=== PATIENT | male | born 1975 | race Caucasian/White ===

== ENCOUNTER 2019-05-14 09:49 | Emergency (ER) | payer BC ==
[~2019-05-14] VITALS: Ht 177.8 cm; Wt 68.4 kg
[2019-05-14 10:33] LABS: BASOPHILS % (AUTO) 0.8 % (0-1); EOSINOPHILS % (AUTO) 0.6 % (0-6); HEMATOCRIT 45.7 % (42.0-52.0); HEMOGLOBIN 15.5 g/dl (14.0-17.9); LYMPHOCYTES # (AUTO) 1.3 X10'3 (1.1-4.8); LYMPHOCYTES % (AUTO) 31.7 % (21-51); MEAN CORPUSCULAR HEMOGLOBIN 31.2 PG (27.0-31.0); MEAN CORPUSCULAR HGB CONC 33.8 g/dL (33.0-36.5); MEAN CORPUSCULAR VOLUME 92.2 FL (78-98); MEAN PLATELET VOLUME 8.2 FL (7.4-10.4); MONOCYTES # (AUTO) 0.3 X10'3 (0-0.9); MONOCYTES % (AUTO) 7.3 % (2-12); NEUTROPHILS # (AUTO) 2.5 X10'3 (1.8-7.7); NEUTROPHILS % (AUTO) 59.6 % (42-75); PLATELET COUNT 231 X10'3 (140-440); RED BLOOD COUNT 4.95 X10'6 (4.70-6.10); RED CELL DISTRIBUTION WIDTH 13.7 % (11.5-14.5); WHITE BLOOD COUNT 4.1 X10'3 (4.5-11.0)
[2019-05-14 10:48] LABS: ALANINE AMINOTRANSFERASE 32 U/L (12-78); ALBUMIN 4.5 G/DL (3.4-5.0); ALBUMIN/GLOBULIN RATIO 1.6 (1.1-1.5); ALKALINE PHOSPHATASE 110 IU/L (46-116); ASPARTATE AMINO TRANSFERASE 20 U/L (10-37); BILIRUBIN,TOTAL 1.5 MG/DL (0.1-1.0); BLOOD UREA NITROGEN 22 MG/DL (7-18); BUN/CREATININE RATIO 21.4 (5.4-32.0); CHLORIDE 105 MMOL/L (99-107); CREATININE 1.03 MG/DL (0.60-1.10); GLUCOSE 99 MG/DL (70-104); POTASSIUM 3.9 MMOL/L (3.5-5.1); TOTAL CARBON DIOXIDE 28.3 MMOL/L (24-32); TOTAL PROTEIN 7.4 G/DL (6.4-8.2); eGFR 78 ML/MIN
[2019-05-14 10:50] LABS: ANION GAP 7 (8-16); SODIUM 140 MMOL/L (135-145)
[2019-05-14] MEDS ORDERED: ketorolac tromethamine 15mg/ml inj. IV ONE (11:25)
[2019-05-14] MEDS ORDERED: IBUP-1984 PO (11:28)
[2019-05-14 12:47] VITALS: BP 109/70
== END 2019-05-14 12:49 | disposition home or self-care (01) ==
LOC: ER 09:49
DX: R07.89 Other chest pain (principal); Z79.899 Other long term (current) drug therapy
CPT/HCPCS: 36415; 71045; 80053; 84484; 85025; 93005; 96374; 99284; J1885

== ENCOUNTER 2020-06-13 12:42 | Emergency (ER) | payer BC ==
[~2020-06-13] VITALS: Ht 177.8 cm; Wt 115.9 kg
[2020-06-13 13:29] LABS: BASOPHILS % (AUTO) 0.6 % (0-1); EOSINOPHILS # (AUTO) 0.1 X10'3 (0-0.9); EOSINOPHILS % (AUTO) 1.8 % (0-6); HEMOGLOBIN 16.2 g/dl (14.0-17.9); LYMPHOCYTES # (AUTO) 1.3 X10'3 (1.1-4.8); LYMPHOCYTES % (AUTO) 28.1 % (21-51); MEAN CORPUSCULAR HEMOGLOBIN 30.6 PG (27.0-31.0); MEAN CORPUSCULAR HGB CONC 33.7 g/dL (33.0-36.5); MEAN PLATELET VOLUME 8.5 FL (7.4-10.4); MONOCYTES # (AUTO) 0.4 X10'3 (0-0.9); MONOCYTES % (AUTO) 8.7 % (2-12); NEUTROPHILS # (AUTO) 2.8 X10'3 (1.8-7.7); NEUTROPHILS % (AUTO) 60.8 % (42-75); PLATELET COUNT 220 X10'3 (140-440); RED BLOOD COUNT 5.28 X10'6 (4.70-6.10); RED CELL DISTRIBUTION WIDTH 13.8 % (11.5-14.5); WHITE BLOOD COUNT 4.5 X10'3 (4.5-11.0)
[2020-06-13 13:49] LABS: ALANINE AMINOTRANSFERASE 34 U/L (12-78); ALBUMIN 4.5 G/DL (3.4-5.0); ALBUMIN/GLOBULIN RATIO 1.4 (1.1-1.5); ALKALINE PHOSPHATASE 104 IU/L (46-116); ANION GAP 6 (8-16); ASPARTATE AMINO TRANSFERASE 19 U/L (10-37); BILIRUBIN,TOTAL 1.5 MG/DL (0.1-1.0); BLOOD UREA NITROGEN 17 MG/DL (7-18); BUN/CREATININE RATIO 17.3 (5.4-32.0); CALCIUM 9.1 MG/DL (8.5-10.1); CHLORIDE 103 MMOL/L (99-107); CREATININE 0.98 MG/DL (0.60-1.10); GLUCOSE 100 MG/DL (70-104); SODIUM 137 MMOL/L (135-145); TOTAL CARBON DIOXIDE 28.3 MMOL/L (24-32); TOTAL PROTEIN 7.8 G/DL (6.4-8.2); eGFR 82 ML/MIN
[2020-06-13 14:03] LABS: LIPASE 72 U/L (73-393)
[2020-06-13 14:13] VITALS: BP 116/86
== END 2020-06-13 14:50 | disposition home or self-care (01) ==
LOC: ER 12:42
DX: R10.13 Epigastric pain (principal)
CPT/HCPCS: 36415; 71045; 80053; 83690; 83880; 84484; 85025; 93005; 99285

== ENCOUNTER 2021-09-01 13:26 | Emergency (ER) | payer BC, OTHER ==
[~2021-09-01] VITALS: Ht 177.8 cm; Wt 70.0 kg
[2021-09-01 13:43] VITALS: BP 131/90
[2021-09-01] MEDS ORDERED: TETanus/Pertussis (Acell)/Diphther VAC/PF (Tdap-Adult) 0.5ml syringe IMVAC ONE (14:50)
[2021-09-01] MEDS ORDERED: HYDR-3965 PO (15:13)
[2021-09-01] MEDS ORDERED: CEPH250T PO ×2 (15:13→17:27)
== END 2021-09-01 16:46 | disposition home or self-care (01) ==
LOC: ER 13:26
DX: S62.635A Displaced fracture of distal phalanx of left ring finger, initial encounter for closed fracture (principal); S61.215A Laceration without foreign body of left ring finger without damage to nail, initial encounter; M79.645 Pain in left finger(s); Z79.2 Long term (current) use of antibiotics; Z20.3 Contact with and (suspected) exposure to rabies; X58.XXXA Exposure to other specified factors, initial encounter; Y93.89 Activity, other specified; Y92.89 Other specified places as the place of occurrence of the external cause; Y99.8 Other external cause status
CPT/HCPCS: 12001; 73140; 90471; 90715; 99283

== ENCOUNTER 2021-09-10 11:42 | Emergency (ER) | payer OTHER ==
[~2021-09-10] VITALS: Ht 177.8 cm; Wt 70.5 kg
[~2021-09-10 11:42] MED LIST: HYDR-3965 PO
[2021-09-10 11:49] VITALS: BP 123/79
== END 2021-09-10 12:57 | disposition home or self-care (01) ==
LOC: ER 11:43
DX: M79.645 Pain in left finger(s) (principal); S61.215D Laceration without foreign body of left ring finger without damage to nail, subsequent encounter; Z48.02 Encounter for removal of sutures; Z79.899 Other long term (current) drug therapy; X58.XXXD Exposure to other specified factors, subsequent encounter
CPT/HCPCS: 99281

== ENCOUNTER 2023-07-07 06:53 | Observation (INO) | payer BC, OTHER ==
[~2023-07-07] VITALS: Ht 175.3 cm; Wt 70.2 kg
[2023-07-07 07:28] LABS: BASOPHILS % (AUTO) 0.7 % (0-1); EOSINOPHILS # (AUTO) 0.1 X10'3 (0-0.9); EOSINOPHILS % (AUTO) 1.2 % (0-6); HEMATOCRIT 46.9 % (42.0-52.0); HEMOGLOBIN 15.7 g/dl (14.0-17.9); LYMPHOCYTES # (AUTO) 1.6 X10'3 (1.1-4.8); LYMPHOCYTES % (AUTO) 32.5 % (21-51); MEAN CORPUSCULAR HEMOGLOBIN 30.5 PG (27.0-31.0); MEAN CORPUSCULAR HGB CONC 33.5 g/dL (33.0-36.5); MEAN PLATELET VOLUME 8.4 FL (7.4-10.4); MONOCYTES # (AUTO) 0.3 X10'3 (0-0.9); NEUTROPHILS # (AUTO) 2.9 X10'3 (1.8-7.7); NEUTROPHILS % (AUTO) 58.6 % (42-75); PLATELET COUNT 203 X10'3 (140-440); RED BLOOD COUNT 5.16 X10'6 (4.70-6.10); RED CELL DISTRIBUTION WIDTH 13.9 % (11.5-14.5); WHITE BLOOD COUNT 4.9 X10'3 (4.5-11.0)
[2023-07-07] MEDS: aspirin 325mg tablet PO ONE (07:31)
[2023-07-07 07:43] LABS: ALANINE AMINOTRANSFERASE 38 U/L (12-78); ALBUMIN 4.4 G/DL (3.4-5.0); ALBUMIN/GLOBULIN RATIO 1.3 (1.1-1.5); ALKALINE PHOSPHATASE 164 IU/L (46-116); ANION GAP 9 (8-16); ASPARTATE AMINO TRANSFERASE 20 U/L (10-37); BLOOD UREA NITROGEN 19 MG/DL (7-18); BUN/CREATININE RATIO 22.4 (10.0-20.0); CALCIUM 8.9 MG/DL (8.5-10.1); CHLORIDE 105 MMOL/L (99-107); CREATININE 0.85 MG/DL (0.60-1.10); GLUCOSE 107 MG/DL (70-104); POTASSIUM 3.7 MMOL/L (3.5-5.1); SODIUM 140 MMOL/L (135-145); TOTAL CARBON DIOXIDE 26.3 MMOL/L (24-32); TOTAL PROTEIN 7.7 G/DL (6.4-8.2); eCRCL 103 ML/MIN; eGFR > 90 ML/MIN
[2023-07-07 07:55] LABS: PRO BRAIN NATRIURETIC PEPTIDE 46 PG/ML (0-125)
[2023-07-07] MEDS ORDERED: acetaminophen 325mg tablet PO PRN ×2 (13:05)
[2023-07-07] MEDS ORDERED: magnesium 2GM in 50ml NS 50 ML IV PRN (13:05)
[2023-07-07] MEDS ORDERED: potassium Cl 20 mEq SR tablet PO PRN ×2 (13:05)
[2023-07-07] MEDS ORDERED: magnesium Cl slow-release 64mg tablet PO PRN (13:05)
[2023-07-07] MEDS ORDERED: magnesium hydroxide 30ml (MOM) UD suspension PO PRN (13:05)
[2023-07-07] MEDS ORDERED: ondansetron 4mg rapidly disintigrating tab PO PRN (13:05)
[2023-07-07] MEDS ORDERED: ondansetron/PF 4mg/2ml inj IV PRN (13:05)
[2023-07-07] MEDS ORDERED: magnesium 4gm in 100ml NS 100 ML IV PRN (13:05)
[2023-07-07] MEDS ORDERED: potassium Cl 40MEQ/1/2NS 520ml 520 ML IV PRN (13:05)
[2023-07-07] MEDS ORDERED: mag hydrox/Alum hydrox/simeth 30ml oral suspension PO PRN (13:05)
[2023-07-07] MEDS ORDERED: morphine 2 MG/ML inj. syringe IV PRN ×2 (13:05)
[2023-07-07] MEDS ORDERED: nitroGLYCERIN 0.4mg SUBLingual tab SL PRN (13:05)
[2023-07-07 14:26] VITALS: RESP 15
[2023-07-07 15:00] VITALS: BP 115/68; PULSE 65; RESP 15; TEMP 98.5; O2SAT 100
[2023-07-07] MEDS: metoprolol tartrate 12.5mg (1/2 tablet) PO SCH (15:00)
[2023-07-07] MEDS ORDERED: NO HOME MEDS (17:36)
[2023-07-07] MEDS ORDERED: Potassium Cl inj 20 MEQ in normal saline 1000ml 990 ML IV SCH (17:45)
[2023-07-07] MEDS ORDERED: LORazepam 0.5 MG tablet PO PRN (17:45)
[2023-07-07 18:00] VITALS: BP 112/79; PULSE 65; RESP 12; TEMP 98.4; O2SAT 96
[2023-07-07 18:13] LABS: CHOL/HDL RATIO 2.4 (0.00-4.99); CHOLESTEROL 156 MG/DL (0-200); HDL CHOLESTEROL 65 MG/DL (35-60); LDL CHOLESTEROL 75 MG/DL (50-100)
[2023-07-07 18:14] LABS: FREE T4 (FREE THYROXINE) 0.91 NG/DL (0.73-1.40); THYROID STIMULATING HORMONE 1.84 ulU/ml (0.34-4.50); TRIGLYCERIDES 15 MG/DL (20-135)
[2023-07-07 18:22] LABS: H PYLORI ANTIBODY NEGATIVE (Neg)
[2023-07-07] MEDS: potassium Cl 20mEq in NS 1,000 ML IV SCH (19:24)
[2023-07-07 20:00] VITALS: RESP 18; O2SAT 96
[2023-07-07] MEDS: K and/or MAG REPLACEMENT MC SCH (20:00)
[2023-07-07] MEDS ORDERED: docusate sod 100mg capsule PO SCH (20:00)
[2023-07-07 21:23] VITALS: BP 112/71; PULSE 71
[2023-07-07 22:00] VITALS: BP 119/73; PULSE 70; RESP 17; TEMP 98.5; O2SAT 99
[2023-07-08 02:00] VITALS: BP 107/70; PULSE 55; RESP 14; TEMP 97.9; O2SAT 99
[2023-07-08 05:44] LABS: HEMATOCRIT 44.9 % (42.0-52.0); HEMOGLOBIN 15.1 g/dl (14.0-17.9); MEAN CORPUSCULAR HEMOGLOBIN 30.9 PG (27.0-31.0); MEAN CORPUSCULAR HGB CONC 33.7 g/dL (33.0-36.5); MEAN CORPUSCULAR VOLUME 91.6 FL (78-98); MEAN PLATELET VOLUME 8.7 FL (7.4-10.4); PLATELET COUNT 185 X10'3 (140-440); RED CELL DISTRIBUTION WIDTH 14.1 % (11.5-14.5); WHITE BLOOD COUNT 4.7 X10'3 (4.5-11.0)
[2023-07-08 06:00] VITALS: BP 119/79; PULSE 70; RESP 16; TEMP 97.8; O2SAT 98
[2023-07-08 06:00] LABS: ALBUMIN 3.7 G/DL (3.4-5.0); ANION GAP 9 (8-16); BLOOD UREA NITROGEN 11 MG/DL (7-18); BUN/CREATININE RATIO 14.5 (10.0-20.0); CALCIUM 8.5 MG/DL (8.5-10.1); CHLORIDE 107 MMOL/L (99-107); CREATININE 0.76 MG/DL (0.60-1.10); GLUCOSE 110 MG/DL (70-104); MAGNESIUM 2.2 MG/DL (1.5-2.4); SODIUM 140 MMOL/L (135-145); TOTAL CARBON DIOXIDE 23.7 MMOL/L (24-32); eCRCL 115 ML/MIN; eGFR > 90 ML/MIN
[2023-07-08 07:45] VITALS: RESP 16; O2SAT 98
[2023-07-08] MEDS: aspirin 81mg tab.chew PO SCH (09:08)
[2023-07-08 09:14] VITALS: BP_SYST 119; PULSE 70
[2023-07-08] MEDS: enoxaparin 40mg/0.4ml syringe SUBCUT SCH (09:17)
[2023-07-08] MEDS ORDERED: LOP12.5T PO (09:47)
[2023-07-08] MEDS ORDERED: ESCI5TAB PO (09:47)
[2023-07-08] MEDS ORDERED: PANT-47 PO (11:17)
== END 2023-07-08 12:50 | disposition home or self-care (01) ==
LOC: ER 06:53 → ED HOLD 13:09 → PCU 3S 14:41
PROVIDERS: ADMIT Family Medicine; ATTEND Family Medicine
DX: I49.3 Ventricular premature depolarization (principal); R79.89 Other specified abnormal findings of blood chemistry; F41.9 Anxiety disorder, unspecified; F15.90 Other stimulant use, unspecified, uncomplicated; Z79.899 Other long term (current) drug therapy
CPT/HCPCS: 36415; 71045; 80048; 80053; 80061; 83735; 83880; 84439; 84443; 84484; 85025; 85027; 86677; 87081; 93005; 93306; 96360; 96361; 99285; G0378; J1650; J3480; J7030

== ENCOUNTER 2023-07-10 10:22 | Emergency (ER) | payer BC ==
[~2023-07-10] VITALS: Ht 175.3 cm; Wt 70.0 kg
[~2023-07-10 10:22] MED LIST changes: +ESCI5TAB PO; -HYDR-3965 PO; +LOP12.5T PO; +PANT-47 PO
[2023-07-10 10:27] VITALS: TEMP 97.8
[2023-07-10 11:03] LABS: BASOPHILS % (AUTO) 0.6 % (0-1); EOSINOPHILS % (AUTO) 0.2 % (0-6); HEMATOCRIT 46.5 % (42.0-52.0); HEMOGLOBIN 15.6 g/dl (14.0-17.9); LYMPHOCYTES # (AUTO) 1.3 X10'3 (1.1-4.8); LYMPHOCYTES % (AUTO) 20.9 % (21-51); MEAN CORPUSCULAR HEMOGLOBIN 30.5 PG (27.0-31.0); MEAN CORPUSCULAR HGB CONC 33.5 g/dL (33.0-36.5); MEAN PLATELET VOLUME 8.3 FL (7.4-10.4); MONOCYTES # (AUTO) 0.4 X10'3 (0-0.9); MONOCYTES % (AUTO) 5.5 % (2-12); NEUTROPHILS # (AUTO) 4.7 X10'3 (1.8-7.7); NEUTROPHILS % (AUTO) 72.8 % (42-75); PLATELET COUNT 202 X10'3 (140-440); RED BLOOD COUNT 5.11 X10'6 (4.70-6.10); RED CELL DISTRIBUTION WIDTH 13.7 % (11.5-14.5); WHITE BLOOD COUNT 6.5 X10'3 (4.5-11.0)
[2023-07-10 11:25] LABS: ALANINE AMINOTRANSFERASE 33 U/L (12-78); ALBUMIN 4.3 G/DL (3.4-5.0); ALBUMIN/GLOBULIN RATIO 1.3 (1.1-1.5); ALKALINE PHOSPHATASE 117 IU/L (46-116); ANION GAP 8 (8-16); ASPARTATE AMINO TRANSFERASE 17 U/L (10-37); BILIRUBIN,TOTAL 2.3 MG/DL (0.1-1.0); BLOOD UREA NITROGEN 16 MG/DL (7-18); BUN/CREATININE RATIO 18.8 (10.0-20.0); CALCIUM 8.9 MG/DL (8.5-10.1); CHLORIDE 106 MMOL/L (99-107); CREATININE 0.85 MG/DL (0.60-1.10); GLUCOSE 96 MG/DL (70-104); POTASSIUM 3.6 MMOL/L (3.5-5.1); SODIUM 141 MMOL/L (135-145); TOTAL CARBON DIOXIDE 27.5 MMOL/L (24-32); TOTAL PROTEIN 7.5 G/DL (6.4-8.2); eCRCL 103 ML/MIN; eGFR > 90 ML/MIN
[2023-07-10 11:31] LABS: PRO BRAIN NATRIURETIC PEPTIDE 39 PG/ML (0-125)
[2023-07-10 11:51] VITALS: BP 139/82; PULSE 74; RESP 16; O2SAT 100
== END 2023-07-10 16:46 | disposition left against medical advice (07) ==
LOC: ER 10:23
DX: R07.89 Other chest pain (principal); M54.2 Cervicalgia; R00.2 Palpitations; Z53.21 Procedure and treatment not carried out due to patient leaving prior to being seen by health care provider
CPT/HCPCS: 36415; 71045; 80053; 83880; 84484; 85025; 93005; 99281